=== PATIENT | male | born 1935 | race African-American/Black ===

== ENCOUNTER 2019-02-13 08:08 | Inpatient (IN) ==
[2019-02-13] MEDS ORDERED: DIAZEPAM 5 MG TABLET PO ONE (08:11)
[2019-02-13] MEDS ORDERED: diphenhydrAMINE CAP 25 MG CAPSULE PO ONE (08:11)
[2019-02-13] MEDS ORDERED: MAGNESIUM SULF RIDER 2 GM in PREMIX 1 EACH IV PRN (08:11)
[2019-02-13] MEDS ORDERED: ASPIRIN 325 MG TABLET PO ONE (08:11)
[2019-02-13] MEDS ORDERED: POTASSIUM CHLORIDE RIDER 10 MEQ in PREMIX 1 EACH IV PRN (08:11)
[2019-02-13] MEDS ORDERED: ASPIRIN 325 MG TABLET ONE (08:45)
[2019-02-13] MEDS ORDERED: diphenhydrAMINE CAP 25 MG CAPSULE ONE (08:46)
[2019-02-13] MEDS ORDERED: DIAZEPAM 5 MG TABLET ONE (08:46)
[2019-02-13] MEDS: SODIUM CHLORIDE 0.9% 1,000 ML IV SCH ×2 (08:48→18:40)
[2019-02-13 08:53] LABS: Basophils % 0.5 % (0.0-0.8); Eosinophils # 0.4 10*3/uL (0.0-0.87); Eosinophils % 6.2 % (0.00-10.9); Hematocrit 46.1 VOL% (42.0-52.0); Hemoglobin 14.9 GM/DL (14.0-18.0); Immature Granulocytes % 0.2 %; Immature Granulocytes Absolute 0.01 #; Lymphocytes # 1.9 10*3/uL (1.4-4.0); Lymphocytes % 33.4 % (21.2-54.2); Mean Corpuscular HGB Conc 32.3 GM/DL (32-36); Mean Corpuscular Volume 92.9 FL (87-102); Mean Platelet Volume 9.9 FL (9.6-12.0); Monocytes % 8.6 % (1.7-12.7); Neutrophils % 51.1 % (38.7-73.9); Platelet Count 138 T/CUMM (130-400); Red Blood Count 4.96 MC/CUMM (3.8-5.5); Red Cell Distribution Width 14.6 % (9.3-17.3); White Blood Count 5.7 T/CUMM (4-12)
[2019-02-13] MEDS ORDERED: MIDAZOLAM 2 MG/2 ML VIAL ONE (09:00)
[2019-02-13] MEDS ORDERED: HYDROmorphone 2 MG/1 ML VIAL ONE (09:00)
[2019-02-13] MEDS ORDERED: LIDOCAINE 1% 20 ML VIAL ONE (09:00)
[2019-02-13] MEDS ORDERED: hydrALAZINE 20 MG/1 ML VIAL ONE ×2 (09:14→11:24)
[2019-02-13 09:25] LABS: Calcium 8.9 MG/DL (8.5-10.1); Osmolality,Calculated 285.1 MOS/KG (273-304)
[2019-02-13] MEDS ORDERED: HEPARIN 5,000 UNIT/1 ML VIAL ONE (09:51)
[2019-02-13] MEDS ORDERED: ADENOSINE 90 MG/30 ML VIAL IV ONE (10:51)
[2019-02-13] MEDS ORDERED: NITROGLYCERIN SL 0.4 MG TABLET SL PRN (11:30)
[2019-02-13] MEDS ORDERED: ZALEPLON 5 MG CAPSULE PO PRN (11:30)
[2019-02-13] MEDS ORDERED: ONDANSETRON 4 MG/2 ML VIAL IV PRN (11:30)
[2019-02-13 13:24] LABS: Troponin I 0.277 NG/ML (0.00-0.045)
[2019-02-13] MEDS: ACETAMINOPHEN 325 MG TABLET PO PRN (14:35)
[2019-02-13] MEDS: TICAGRELOR 90 MG TABLET PO SCH (21:56)
[2019-02-13] MEDS: carvediloL 25 MG TABLET PO SCH (21:56)
[2019-02-13] MEDS: INSULIN GLARGINE 100 UNIT/ML SUBCUT SCH (21:56)
[2019-02-13] MEDS: PREGABALIN 75 MG CAPSULE PO SCH (21:56)
[2019-02-13] MEDS: CILOSTAZOL 50 MG TABLET PO SCH (21:56)
[2019-02-14] MEDS: SODIUM CHLORIDE 0.9% 1,000 ML IV SCH (04:46)
[2019-02-14 05:35] LABS: Basophils % 0.3 % (0.0-0.8); Eosinophils # 0.3 10*3/uL (0.0-0.87); Eosinophils % 4.1 % (0.00-10.9); Hematocrit 41.9 VOL% (42.0-52.0); Hemoglobin 13.8 GM/DL (14.0-18.0); Immature Granulocytes % 0.3 %; Immature Granulocytes Absolute 0.02 #; Lymphocytes # 1.9 10*3/uL (1.4-4.0); Lymphocytes % 26.3 % (21.2-54.2); Mean Corpuscular HGB Conc 32.9 GM/DL (32-36); Mean Corpuscular Volume 90.9 FL (87-102); Monocytes % 10.1 % (1.7-12.7); Neutrophils % 58.9 % (38.7-73.9); Platelet Count 143 T/CUMM (130-400); Red Blood Count 4.61 MC/CUMM (3.8-5.5); Red Cell Distribution Width 14.6 % (9.3-17.3); White Blood Count 7.3 T/CUMM (4-12)
[2019-02-14 05:55] LABS: CKMB % 6.9 %; Calcium 8.7 MG/DL (8.5-10.1); Osmolality,Calculated 279.4 MOS/KG (273-304)
[2019-02-14 05:57] LABS: Troponin I 5.81 NG/ML (0.00-0.045)
[2019-02-14 09:11] LABS: CKMB % 6.1 %
[2019-02-14 09:12] LABS: Troponin I 4.26 NG/ML (0.00-0.045)
[2019-02-14] MEDS ORDERED: FUROSEMIDE 20 MG/2 ML VIAL IV ONE (09:23)
[2019-02-14] MEDS: ASPIRIN EC 81 MG TABLET PO SCH (09:26)
[2019-02-14] MEDS: SERTRALINE 50 MG TABLET PO SCH (09:26)
[2019-02-14] MEDS: CILOSTAZOL 50 MG TABLET PO SCH ×2 (09:26→21:38)
[2019-02-14] MEDS: TICAGRELOR 90 MG TABLET PO SCH (09:26)
[2019-02-14] MEDS: carvediloL 25 MG TABLET PO SCH ×2 (09:26→21:38)
[2019-02-14] MEDS: PREGABALIN 75 MG CAPSULE PO SCH ×2 (09:26→21:38)
[2019-02-14] MEDS: DOCUSATE SODIUM 100 MG CAPSULE PO SCH (09:26)
[2019-02-14] MEDS: amLODIPine 10 MG TABLET PO SCH (09:26)
[2019-02-14] MEDS: TAMSULOSIN 0.4 MG CAPSULE PO SCH (09:26)
[2019-02-14] MEDS: ROSUVASTATIN 20 MG TABLET PO SCH (09:26)
[2019-02-14] MEDS: OMEGA 3 ACID ETHYL ESTERS 1 GM CAPSULE PO SCH (09:26)
[2019-02-14] MEDS: BUDESONIDE/FORMOTEROL 160-4.5 INHALER 6 GM INH SCH (09:28)
[2019-02-14] MEDS ORDERED: ALUM/MAG/SIMETH/LIDO VISC 1:1 30 ML BOTTLE PO ONE (11:11)
[2019-02-14] MEDS ORDERED: CLOPIDOGREL 300 MG TABLET PO ONE (13:12)
[2019-02-14] MEDS: ALBUTEROL 1.25 MG/3 ML NEB RESP TX SCH ×2 (15:00→20:46)
[2019-02-14] MEDS: PANTOPRAZOLE 40 MG TABLET PO SCH (15:59)
[2019-02-14] MEDS: hydrALAZINE 25 MG TABLET PO SCH ×2 (15:59→21:38)
[2019-02-14] MEDS: INSULIN GLARGINE 100 UNIT/ML SUBCUT SCH (21:38)
[2019-02-14] MEDS ORDERED: METOPROLOL TARTRATE 5 MG/5 ML VIAL IV ONE (23:01)
[2019-02-15 00:28] LABS: Allen Test Positive
[2019-02-15 00:30] LABS: ABG Base Excess -1.1 MMOL/L (-2.5-2.5); ABG HCO3 23.4 MMOL/L (20-26); ABG Oxygen Saturation 93.7 % (95-100); ABG PCO2 29.5 MM HG (35-48); ABG PH 7.468 (7.35-7.45); ABG PO2 66.3 MM HG (80-95); ABG TCO2 18.4 MMOL/L (23-27)
[2019-02-15] MEDS: ALBUTEROL 1.25 MG/3 ML NEB RESP TX SCH ×2 (02:18→07:53)
[2019-02-15 06:22] LABS: Basophils % 0.1 % (0.0-0.8); Hematocrit 46.7 VOL% (42.0-52.0); Hemoglobin 15.1 GM/DL (14.0-18.0); Immature Granulocytes Absolute 0.21 #; Lymphocytes # 1.8 10*3/uL (1.4-4.0); Lymphocytes % 8.7 % (21.2-54.2); Mean Corpuscular HGB Conc 32.3 GM/DL (32-36); Mean Corpuscular Volume 94.9 FL (87-102); Mean Platelet Volume 11.5 FL (9.6-12.0); Monocytes % 9.2 % (1.7-12.7); Platelet Count 68 T/CUMM (130-400); Red Blood Count 4.92 MC/CUMM (3.8-5.5); Red Cell Distribution Width 15.1 % (9.3-17.3); White Blood Count 20.2 T/CUMM (4-12)
[2019-02-15 07:00] LABS: Band Neutrophils 3 % (0-10); Lymphocytes 10 % (20-55); Segmented Neutrophils 77 % (50-85); Total Cells Counted 100
[2019-02-15 07:06] LABS: Hypochromasia 1+; Platelet Estimate Decreased
[2019-02-15 07:07] LABS: Ovalocytes 1+
[2019-02-15 08:33] LABS: Calcium 8.8 MG/DL (8.5-10.1); Osmolality,Calculated 286.4 MOS/KG (273-304)
[2019-02-15 09:02] LABS: ABG Base Excess -3.1 MMOL/L (-2.5-2.5); ABG HCO3 21.8 MMOL/L (20-26); ABG Oxygen Saturation 94.4 % (95-100); ABG PCO2 30.8 MM HG (35-48); ABG PH 7.424 (7.35-7.45); ABG PO2 72.6 MM HG (80-95); ABG TCO2 17.4 MMOL/L (23-27)
[2019-02-15 09:03] LABS: Allen Test Positive
[2019-02-15] MEDS ORDERED: POTASSIUM CHLORIDE 20 MEQ TABLET PO ONE (09:12)
[2019-02-15] MEDS ORDERED: MAGNESIUM SULF RIDER 2 GM in PREMIX 1 EACH IV ONE (09:12)
[2019-02-15] MEDS ORDERED: SODIUM CHLORIDE 0.9% 1,000 ML IV SCH (09:30)
[2019-02-15] MEDS: DOCUSATE SODIUM 100 MG CAPSULE PO SCH (10:40)
[2019-02-15] MEDS: OMEGA 3 ACID ETHYL ESTERS 1 GM CAPSULE PO SCH (10:41)
[2019-02-15] MEDS: TAMSULOSIN 0.4 MG CAPSULE PO SCH (10:41)
[2019-02-15] MEDS: CILOSTAZOL 50 MG TABLET PO SCH ×2 (10:41→22:57)
[2019-02-15] MEDS: ASPIRIN EC 81 MG TABLET PO SCH (10:41)
[2019-02-15] MEDS: PREGABALIN 75 MG CAPSULE PO SCH ×2 (10:41→22:57)
[2019-02-15] MEDS: ROSUVASTATIN 20 MG TABLET PO SCH (10:41)
[2019-02-15] MEDS: SERTRALINE 50 MG TABLET PO SCH (10:42)
[2019-02-15] MEDS: carvediloL 25 MG TABLET PO SCH ×2 (10:42→22:57)
[2019-02-15] MEDS: hydrALAZINE 25 MG TABLET PO SCH ×2 (10:42→22:57)
[2019-02-15] MEDS: PANTOPRAZOLE 40 MG TABLET PO SCH (10:42)
[2019-02-15] MEDS: amLODIPine 10 MG TABLET PO SCH (10:42)
[2019-02-15] MEDS: CLOPIDOGREL 75 MG TABLET PO SCH (10:42)
[2019-02-15] MEDS: BUDESONIDE/FORMOTEROL 160-4.5 INHALER 6 GM INH SCH (10:45)
[2019-02-15] MEDS: ALBUTEROL/IPRATROPIUM 3 ML NEB RESP TX SCH ×4 (11:01→22:37)
[2019-02-15] MEDS: cefTRIAXone 1,000 MG in SYRINGE 1 EACH IV SCH (11:05)
[2019-02-15 11:10] LABS: Amorphous Crystals,Urine Few /HPF (Few); Apearance,Urine CLOUDY (Clear); Bilirubin,Urine Negative (Negative); Blood, Urine Small mg/dL (Negative); Glucose,Urine (UA) Negative (Negative); Hyaline Casts,Urine 2 /LPF (0-3); Ketones,Urine Negative (Negative); Mucus,Urine Occasional /LPF (Occasional); Nitrite,Urine Positive (Negative); Protein,Urine >=500 MG/DL; RBC,Urine 84 /HPF (0-4); Urine Color Amber (Yellow); Urine Specific Gravity 1.017 (1.001-1.035); Urine Urobilinogen < 2.0 EU/DL (0.2-1.0); WBC,Urine 19 /HPF (0-6)
[2019-02-15] MEDS: SODIUM CHLORIDE 0.45% 1,000 ML IV SCH (14:39)
[2019-02-15] MEDS: INSULIN GLARGINE 100 UNIT/ML SUBCUT SCH (22:57)
[2019-02-16] MEDS: ALBUTEROL/IPRATROPIUM 3 ML NEB RESP TX SCH ×5 (02:39→21:30)
[2019-02-16 04:55] LABS: Basophils % 0.2 % (0.0-0.8); Eosinophils # 0.1 10*3/uL (0.0-0.87); Eosinophils % 0.3 % (0.00-10.9); Hematocrit 37.6 VOL% (42.0-52.0); Hemoglobin 12.5 GM/DL (14.0-18.0); Immature Granulocytes % 1.5 %; Immature Granulocytes Absolute 0.26 #; Lymphocytes # 1.6 10*3/uL (1.4-4.0); Lymphocytes % 9.2 % (21.2-54.2); Mean Corpuscular HGB Conc 33.2 GM/DL (32-36); Mean Platelet Volume 11.1 FL (9.6-12.0); Neutrophils % 80.8 % (38.7-73.9); Platelet Count 111 T/CUMM (130-400); Red Blood Count 4.18 MC/CUMM (3.8-5.5); White Blood Count 17.7 T/CUMM (4-12)
[2019-02-16 05:19] LABS: Calcium 8.3 MG/DL (8.5-10.1); Osmolality,Calculated 287.5 MOS/KG (273-304)
[2019-02-16] MEDS: ACETAMINOPHEN 325 MG TABLET PO PRN ×2 (05:40→20:14)
[2019-02-16 06:12] LABS: Lymphocytes 8 % (20-55); Platelet Estimate Decreased; Segmented Neutrophils 86 % (50-85); Total Cells Counted 100
[2019-02-16] MEDS: cefTRIAXone 1,000 MG in SYRINGE 1 EACH IV SCH (09:02)
[2019-02-16] MEDS: PANTOPRAZOLE 40 MG TABLET PO SCH (09:03)
[2019-02-16] MEDS: ROSUVASTATIN 20 MG TABLET PO SCH (09:03)
[2019-02-16] MEDS: carvediloL 25 MG TABLET PO SCH ×2 (09:03→21:37)
[2019-02-16] MEDS: CLOPIDOGREL 75 MG TABLET PO SCH (09:03)
[2019-02-16] MEDS: OMEGA 3 ACID ETHYL ESTERS 1 GM CAPSULE PO SCH (09:03)
[2019-02-16] MEDS: SERTRALINE 50 MG TABLET PO SCH (09:03)
[2019-02-16] MEDS: TAMSULOSIN 0.4 MG CAPSULE PO SCH (09:03)
[2019-02-16] MEDS: DOCUSATE SODIUM 100 MG CAPSULE PO SCH (09:03)
[2019-02-16] MEDS: ASPIRIN EC 81 MG TABLET PO SCH (09:03)
[2019-02-16] MEDS: PREGABALIN 75 MG CAPSULE PO SCH ×2 (09:11→21:37)
[2019-02-16] MEDS: CILOSTAZOL 50 MG TABLET PO SCH ×2 (09:11→21:37)
[2019-02-16] MEDS: BUDESONIDE/FORMOTEROL 160-4.5 INHALER 6 GM INH SCH (09:11)
[2019-02-16] MEDS: SODIUM CHLORIDE 0.45% 1,000 ML IV SCH ×2 (09:16→10:27)
[2019-02-16] MEDS: hydrALAZINE 25 MG TABLET PO SCH (09:27)
[2019-02-16] MEDS: amLODIPine 10 MG TABLET PO SCH (09:27)
[2019-02-16] MEDS: INSULIN GLARGINE 100 UNIT/ML SUBCUT SCH (21:37)
[2019-02-17] MEDS: ALBUTEROL/IPRATROPIUM 3 ML NEB RESP TX SCH ×6 (01:32→20:29)
[2019-02-17] MEDS: ACETAMINOPHEN 325 MG TABLET PO PRN ×2 (04:20→19:27)
[2019-02-17] MEDS: SODIUM CHLORIDE 0.45% 1,000 ML IV SCH (05:27)
[2019-02-17 06:02] LABS: Basophils % 0.2 % (0.0-0.8); Eosinophils # 0.3 10*3/uL (0.0-0.87); Eosinophils % 2.3 % (0.00-10.9); Hematocrit 35.1 VOL% (42.0-52.0); Hemoglobin 11.5 GM/DL (14.0-18.0); Immature Granulocytes % 0.6 %; Immature Granulocytes Absolute 0.08 #; Lymphocytes # 1.3 10*3/uL (1.4-4.0); Lymphocytes % 10.4 % (21.2-54.2); Mean Corpuscular HGB Conc 32.8 GM/DL (32-36); Mean Corpuscular Volume 92.1 FL (87-102); Mean Platelet Volume 11.8 FL (9.6-12.0); Monocytes % 7.5 % (1.7-12.7); Platelet Count 113 T/CUMM (130-400); Red Blood Count 3.81 MC/CUMM (3.8-5.5); White Blood Count 12.4 T/CUMM (4-12)
[2019-02-17 06:20] LABS: Calcium 8.2 MG/DL (8.5-10.1); Osmolality,Calculated 290.3 MOS/KG (273-304)
[2019-02-17 06:41] LABS: Eosinophils 2 % (0-10); Lymphocytes 12 % (20-55); Segmented Neutrophils 81 % (50-85); Total Cells Counted 100
[2019-02-17 06:42] LABS: Platelet Estimate Decreased
[2019-02-17 06:43] LABS: Hypochromasia Slight
[2019-02-17] MEDS: cefTRIAXone 1,000 MG in SYRINGE 1 EACH IV SCH (09:35)
[2019-02-17] MEDS: ASPIRIN EC 81 MG TABLET PO SCH (09:35)
[2019-02-17] MEDS: CLOPIDOGREL 75 MG TABLET PO SCH (09:35)
[2019-02-17] MEDS: SERTRALINE 50 MG TABLET PO SCH (09:36)
[2019-02-17] MEDS: DOCUSATE SODIUM 100 MG CAPSULE PO SCH (09:36)
[2019-02-17] MEDS: CILOSTAZOL 50 MG TABLET PO SCH ×2 (09:36→21:11)
[2019-02-17] MEDS: carvediloL 25 MG TABLET PO SCH ×2 (09:36→21:11)
[2019-02-17] MEDS: PANTOPRAZOLE 40 MG TABLET PO SCH (09:36)
[2019-02-17] MEDS: ROSUVASTATIN 20 MG TABLET PO SCH (09:36)
[2019-02-17] MEDS: OMEGA 3 ACID ETHYL ESTERS 1 GM CAPSULE PO SCH (09:36)
[2019-02-17] MEDS: TAMSULOSIN 0.4 MG CAPSULE PO SCH (09:36)
[2019-02-17] MEDS: PREGABALIN 75 MG CAPSULE PO SCH ×2 (09:36→21:11)
[2019-02-17] MEDS: BUDESONIDE/FORMOTEROL 160-4.5 INHALER 6 GM INH SCH (09:37)
[2019-02-17] MEDS: INSULIN GLARGINE 100 UNIT/ML SUBCUT SCH (21:11)
[2019-02-18] MEDS: ALBUTEROL/IPRATROPIUM 3 ML NEB RESP TX SCH ×7 (00:42→23:36)
[2019-02-18] MEDS: SODIUM CHLORIDE 0.45% 1,000 ML IV SCH (02:40)
[2019-02-18 05:37] LABS: Basophils % 0.1 % (0.0-0.8); Eosinophils # 0.3 10*3/uL (0.0-0.87); Eosinophils % 3.4 % (0.00-10.9); Hematocrit 34.4 VOL% (42.0-52.0); Hemoglobin 11.1 GM/DL (14.0-18.0); Immature Granulocytes % 0.4 %; Immature Granulocytes Absolute 0.03 #; Lymphocytes # 1.1 10*3/uL (1.4-4.0); Lymphocytes % 14.5 % (21.2-54.2); Mean Corpuscular HGB Conc 32.3 GM/DL (32-36); Mean Corpuscular Volume 91.5 FL (87-102); Mean Platelet Volume 11.5 FL (9.6-12.0); Monocytes % 13.5 % (1.7-12.7); Neutrophils % 68.1 % (38.7-73.9); Platelet Count 140 T/CUMM (130-400); Red Blood Count 3.76 MC/CUMM (3.8-5.5); Red Cell Distribution Width 15.2 % (9.3-17.3); White Blood Count 7.5 T/CUMM (4-12)
[2019-02-18 06:04] LABS: Calcium 8.1 MG/DL (8.5-10.1); Osmolality,Calculated 285.3 MOS/KG (273-304)
[2019-02-18] MEDS ORDERED: FUROSEMIDE 40 MG/4 ML VIAL IV ONE (08:46)
[2019-02-18] MEDS: ROSUVASTATIN 20 MG TABLET PO SCH (09:45)
[2019-02-18] MEDS: TAMSULOSIN 0.4 MG CAPSULE PO SCH (09:45)
[2019-02-18] MEDS: CLOPIDOGREL 75 MG TABLET PO SCH (09:46)
[2019-02-18] MEDS: DOCUSATE SODIUM 100 MG CAPSULE PO SCH (09:46)
[2019-02-18] MEDS: PREGABALIN 75 MG CAPSULE PO SCH ×2 (09:46→21:41)
[2019-02-18] MEDS: carvediloL 25 MG TABLET PO SCH ×2 (09:46→21:42)
[2019-02-18] MEDS: CILOSTAZOL 50 MG TABLET PO SCH (09:46)
[2019-02-18] MEDS: SERTRALINE 50 MG TABLET PO SCH (09:46)
[2019-02-18] MEDS: ASPIRIN EC 81 MG TABLET PO SCH (09:46)
[2019-02-18] MEDS: PANTOPRAZOLE 40 MG TABLET PO SCH (09:46)
[2019-02-18] MEDS: OMEGA 3 ACID ETHYL ESTERS 1 GM CAPSULE PO SCH (09:46)
[2019-02-18] MEDS: ISOSORBIDE DINITRATE 20 MG TABLET PO SCH ×3 (09:49→21:42)
[2019-02-18] MEDS: BUDESONIDE/FORMOTEROL 160-4.5 INHALER 6 GM INH SCH (09:49)
[2019-02-18] MEDS: cefTRIAXone 1,000 MG in SYRINGE 1 EACH IV SCH (10:42)
[2019-02-18] MEDS: LEVOFLOXACIN INJ 250 MG in PREMIX 1 EACH IV SCH (14:57)
[2019-02-18] MEDS ORDERED: TUBERCULIN SKIN TEST 0.1 ML SYRINGE INTRADERM ONE (16:00)
[2019-02-18] MEDS: ACETAMINOPHEN 325 MG TABLET PO PRN (21:41)
[2019-02-18] MEDS: INSULIN GLARGINE 100 UNIT/ML SUBCUT SCH (21:42)
[2019-02-19] MEDS: ALBUTEROL/IPRATROPIUM 3 ML NEB RESP TX SCH ×5 (02:56→19:51)
[2019-02-19 06:02] LABS: Basophils % 0.4 % (0.0-0.8); Eosinophils # 0.3 10*3/uL (0.0-0.87); Eosinophils % 6.1 % (0.00-10.9); Hemoglobin 11.1 GM/DL (14.0-18.0); Immature Granulocytes % 0.6 %; Immature Granulocytes Absolute 0.03 #; Lymphocytes # 1.8 10*3/uL (1.4-4.0); Lymphocytes % 35.3 % (21.2-54.2); Mean Corpuscular HGB Conc 32.6 GM/DL (32-36); Mean Corpuscular Volume 91.2 FL (87-102); Monocytes % 18.4 % (1.7-12.7); Neutrophils % 39.2 % (38.7-73.9); Platelet Count 142 T/CUMM (130-400); Red Blood Count 3.73 MC/CUMM (3.8-5.5); Red Cell Distribution Width 14.8 % (9.3-17.3); White Blood Count 5.2 T/CUMM (4-12)
[2019-02-19 06:20] LABS: Calcium 8.6 MG/DL (8.5-10.1); Osmolality,Calculated 283.5 MOS/KG (273-304)
[2019-02-19 06:39] LABS: Band Neutrophils 1 % (0-10); Eosinophils 2 % (0-10); Lymphocytes 39 % (20-55); Segmented Neutrophils 38 % (50-85); Total Cells Counted 100
[2019-02-19 06:40] LABS: Anisocytosis Slight; Macrocytosis Slight; Platelet Estimate Adequate
[2019-02-19] MEDS: ROSUVASTATIN 20 MG TABLET PO SCH (09:12)
[2019-02-19] MEDS: ISOSORBIDE DINITRATE 20 MG TABLET PO SCH ×3 (09:12→21:29)
[2019-02-19] MEDS: ASPIRIN EC 81 MG TABLET PO SCH (09:12)
[2019-02-19] MEDS: SERTRALINE 50 MG TABLET PO SCH (09:12)
[2019-02-19] MEDS: OMEGA 3 ACID ETHYL ESTERS 1 GM CAPSULE PO SCH (09:12)
[2019-02-19] MEDS: CLOPIDOGREL 75 MG TABLET PO SCH (09:12)
[2019-02-19] MEDS: DOCUSATE SODIUM 100 MG CAPSULE PO SCH (09:12)
[2019-02-19] MEDS: PANTOPRAZOLE 40 MG TABLET PO SCH (09:12)
[2019-02-19] MEDS: TAMSULOSIN 0.4 MG CAPSULE PO SCH (09:13)
[2019-02-19] MEDS: carvediloL 25 MG TABLET PO SCH ×2 (09:13→21:29)
[2019-02-19] MEDS: PREGABALIN 75 MG CAPSULE PO SCH ×2 (09:13→21:26)
[2019-02-19] MEDS: BUDESONIDE/FORMOTEROL 160-4.5 INHALER 6 GM INH SCH (09:16)
[2019-02-19] MEDS: FUROSEMIDE 40 MG/4 ML VIAL IV SCH (14:23)
[2019-02-19] MEDS: LEVOFLOXACIN INJ 250 MG in PREMIX 1 EACH IV SCH (14:43)
[2019-02-19] MEDS ORDERED: FUROSEMIDE 40 MG/4 ML VIAL IV ONE (19:00)
[2019-02-19] MEDS: ACETAMINOPHEN 325 MG TABLET PO PRN (21:26)
[2019-02-19] MEDS: INSULIN GLARGINE 100 UNIT/ML SUBCUT SCH (21:28)
[2019-02-20] MEDS: ALBUTEROL/IPRATROPIUM 3 ML NEB RESP TX SCH ×4 (00:36→10:55)
[2019-02-20 04:41] LABS: Basophils % 0.5 % (0.0-0.8); Eosinophils # 0.4 10*3/uL (0.0-0.87); Eosinophils % 7.5 % (0.00-10.9); Hematocrit 36.2 VOL% (42.0-52.0); Hemoglobin 11.7 GM/DL (14.0-18.0); Immature Granulocytes % 1.2 %; Immature Granulocytes Absolute 0.07 #; Lymphocytes # 2.3 10*3/uL (1.4-4.0); Lymphocytes % 39.5 % (21.2-54.2); Mean Corpuscular HGB Conc 32.3 GM/DL (32-36); Mean Corpuscular Volume 91.4 FL (87-102); Mean Platelet Volume 10.4 FL (9.6-12.0); Monocytes % 16.6 % (1.7-12.7); Neutrophils % 34.7 % (38.7-73.9); Platelet Count 168 T/CUMM (130-400); Red Blood Count 3.96 MC/CUMM (3.8-5.5); Red Cell Distribution Width 14.5 % (9.3-17.3); White Blood Count 5.9 T/CUMM (4-12)
[2019-02-20 04:58] LABS: Calcium 8.4 MG/DL (8.5-10.1); Osmolality,Calculated 284.5 MOS/KG (273-304)
[2019-02-20 05:35] LABS: Atypical Lymphocytes Few; Eosinophils 6 % (0-10); Hypochromasia 1+; Lymphocytes 43 % (20-55); Segmented Neutrophils 31 % (50-85); Total Cells Counted 100
[2019-02-20 05:36] LABS: Microcytosis Slight; Platelet Estimate Adequate
[2019-02-20] MEDS: ROSUVASTATIN 20 MG TABLET PO SCH (09:29)
[2019-02-20] MEDS: CLOPIDOGREL 75 MG TABLET PO SCH (09:29)
[2019-02-20] MEDS: TAMSULOSIN 0.4 MG CAPSULE PO SCH (09:30)
[2019-02-20] MEDS: ISOSORBIDE DINITRATE 20 MG TABLET PO SCH (09:30)
[2019-02-20] MEDS: SERTRALINE 50 MG TABLET PO SCH (09:30)
[2019-02-20] MEDS: DOCUSATE SODIUM 100 MG CAPSULE PO SCH (09:30)
[2019-02-20] MEDS: FUROSEMIDE 40 MG/4 ML VIAL IV SCH (09:30)
[2019-02-20] MEDS: carvediloL 25 MG TABLET PO SCH (09:30)
[2019-02-20] MEDS: OMEGA 3 ACID ETHYL ESTERS 1 GM CAPSULE PO SCH (09:30)
[2019-02-20] MEDS: PANTOPRAZOLE 40 MG TABLET PO SCH (09:30)
[2019-02-20] MEDS: PREGABALIN 75 MG CAPSULE PO SCH (09:30)
[2019-02-20] MEDS: ASPIRIN EC 81 MG TABLET PO SCH (09:30)
[2019-02-20] MEDS: BUDESONIDE/FORMOTEROL 160-4.5 INHALER 6 GM INH SCH (09:37)
[2019-02-20 12:27] VITALS: BP 119/68
[2019-02-21] MEDS ORDERED: ISOSORBIDE MONONITRATE 30 MG TABLET PO SCH (09:00)
[2019-02-21] MEDS ORDERED: FUROSEMIDE 40 MG TABLET PO SCH (09:00)
== END 2019-02-20 13:52 | disposition swing bed (61) | DRG 246 ==
LOC: N.CL 08:08 → N.TELES 12:19
PROVIDERS: ADMIT Internal Medicine Cardiovascular Disease; ATTEND Internal Medicine Cardiovascular Disease
PROC: CLCCHCL (ICD-10-PCS; 2019-02-13 08:15)